=== PATIENT | female | born 1990 | race Caucasian/White ===

== ENCOUNTER 2019-02-11 18:37 | Emergency (ER) | payer MEDICAID ==
[2019-02-11] MEDS ORDERED: MAG HYDROX/AL HYDROX/SIMETH SUSP 30 ML UDCUP PO ONE (20:39)
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
[2019-02-11 21:06] LABS: ABSOLUTE BASOPHILS # (AUTO) 0.1 10^3/uL (0.0-0.2); ABSOLUTE EOSINOPHILS # (AUTO) 0.4 10^3/uL (0.0-0.6); ABSOLUTE LYMPHOCYTES (AUTO) 2.4 10^3/uL (0.5-4.7); ABSOLUTE MONOCYTES (AUTO) 0.5 10^3/uL (0.1-1.4); ABSOLUTE NEUT (AUTO) 5.1 10^3/uL (1.7-8.2); EOSINOPHILS % (AUTO) 4.5 % (0-6); HEMATOCRIT 36.6 % (36.0-47.0); HEMOGLOBIN 12.4 g/dL (12.0-15.5); LYMPHOCYTES % (AUTO) 28.3 % (13-45); MEAN CORPUSCULAR HEMOGLOBIN 28.5 pg (27.0-33.4); MEAN CORPUSCULAR HGB CONC 33.9 g/dL (32.0-36.0); MEAN CORPUSCULAR VOLUME 84 fl (80-97); MONOCYTES % (AUTO) 5.5 % (3-13); PLATELET COUNT 345 10^3/uL (150-450); RED BLOOD COUNT 4.36 10^6/uL (3.72-5.28); RED CELL DISTRIBUTION WIDTH 14.2 % (11.5-14.0); SEGMENTED NEUTROPHILS % (AUTO) 60.7 % (42-78); TOTAL CELLS COUNTED % (AUTO) 100 %; WHITE BLOOD COUNT 8.5 10^3/uL (4.0-10.5)
[2019-02-11 21:30] LABS: ALANINE AMINOTRANSFERASE 30 U/L (9-52); ALBUMIN 3.9 g/dL (3.5-5.0); ALKALINE PHOSPHATASE 65 U/L (38-126); ANION GAP 9 (5-19); ASPARTATE AMINO TRANSFERASE 26 U/L (14-36); BILIRUBIN,DIRECT 0.3 mg/dL (0.0-0.4); BILIRUBIN,TOTAL 0.4 mg/dL (0.2-1.3); BLOOD UREA NITROGEN 12 mg/dL (7-20); CALCIUM 9.4 mg/dL (8.4-10.2); CARBON DIOXIDE 25 mmol/L (22-30); CHLORIDE 105 mmol/L (98-107); CREATINE KINASE 205 U/L (30-135); GLUCOSE 83 mg/dL (75-110); LIPASE 75.7 U/L (23-300); POTASSIUM 4.3 mmol/L (3.6-5.0); SODIUM 138.9 mmol/L (137-145)
[2019-02-11 21:40] LABS: CREATINE KINASE MB 2.56 ng/mL (<4.55)
[2019-02-11 21:50] LABS: TROPONIN I < 0.012 ng/mL
--- NOTE | 2019-02-11 21:52 | RADIOLOGY REPORT (SQ) ---
EXAM DESCRIPTION: XR CHEST 2 VIEWS COMPLETED DATE/TME: 02/11/2019 20:38 CLINICAL HISTORY: 29 years, Female, Chest pain and bilateral pedal edema EXAM DESCRIPTION: CLINICAL HISTORY: Chest pain and bilateral pedal edema COMPARISON: February 11, 2016 FINDINGS: Two views of the chest are submitted. There is mild bilateral peribronchial cuffing. No significant pleural effusions. Cardiac silhouette appears normal. There is increased atelectasis at the left lung base. No definite focal consolidation. No acute bony abnormality. There is no significant pulmonary vascular engorgement. IMPRESSION: Mild pulmonary edema.
--- NOTE | 2019-02-11 23:01 | EKG REPORT ---
SEVERITY:- NORMAL ECG - SINUS RHYTHM : Confirmed by: Luis Enrique Chang 11-Feb-2019 23:00:26
[2019-02-12] MEDS ORDERED: FUROSEMIDE 20 MG TABLET PO ONE (00:34)
--- NOTE | 2019-02-12 00:34 | ER Document Report ---
ED General - General Chief Complaint: Leg Swelling Stated Complaint: FOOT SWELLING Time Seen by Provider: 02/11/19 20:33 Primary Care Provider: SLIME TAVAREZ MD [ACTIVE STAFF] - Follow up in 3-5 days Mode of Arrival: Ambulatory Notes: Patient is a pleasant 29-year-old female presents with complaint of some swelling in her legs. She also feels a bit short of breath when she gets up and exerts herself. She has felt a little dizzy and lightheaded. She says that this is been ongoing for 3 days. She is mentions that she has been having heavy vaginal bleeding for approximately a month. She has a history of PCOS. Her primary care doctor started on spironolactone approximately ago but she says that she feels that her symptoms have been worsening since starting this medication. She denies any fevers. No vomiting. She takes no other medications. She is significantly overweight. She has not followed up with a game protector in regards to her symptoms of heavy vaginal bleeding and PCOS. TRAVEL OUTSIDE OF THE [place] IN LAST 30 DAYS: No - Related Data Allergies/Adverse Reactions: Penicillins Allergy (Verified 02/11/19 18:41) strawberry Allergy (Verified 02/11/19 18:41) all cillins Allergy (Uncoded 02/11/19 18:41) Past Medical History - General Information source: Patient - Social History Smoking Status: Never Smoker Frequency of alcohol use: None Drug Abuse: None Family History: Reviewed & Not Pertinent Review of Systems - Review of Systems Notes: My Normal Review Basic REVIEW OF SYSTEMS: CONSTITUTIONAL : Denies fever, chills, or sweats. Denies recent illness. CARDIOVASCULAR: Denies chest pain. RESPIRATORY: Denies cough, cold, or chest congestion. Some difficulty breathing with exertion GASTROINTESTINAL: Denies abdominal pain. Denies nausea, vomiting, or diarrhea. GENITOURINARY: Denies difficulty urinating, painful urination, burning, frequency, or blood in urine. FEMALE GENITOURINARY: Recurrent heavy vaginal bleeding MUSCULOSKELETAL: Denies neck or back pain or joint pain or swelling. SKIN: Denies rash or skin lesions. NEUROLOGICAL: Denies altered mental status or loss of consciousness. Denies headache. Denies weakness or paralysis or loss of use of either side. Denies problems with gait or speech. Denies sensory or motor loss. ALL OTHER SYSTEMS REVIEWED AND NEGATIVE. Physical Exam - Vital signs Vitals: Temp Pulse Resp BP Pulse Ox 98.1 F 82 16 141/70 H 99 02/11/19 19:20 02/11/19 19:20 02/11/19 19:20 02/11/19 19:20 02/11/19 19:20 - Notes Notes: General Appearance: Well nourished, alert, cooperative, no acute distress, no obvious discomfort. Well-appearing. Vitals: reviewed, See vital signs table. Eyes: PERRL, EOMI, Conjuctiva clear Mouth: No decreasd moisture Throat: No tonsillar inflammation, No airway obstruction, No lymphadenopathy Neck: Supple, no neck tenderness, No thyromegaly Lungs: No wheezing, No rales, No rhonci, No accessory muscle use, good air exchange bilaterally. Heart: Normal rate, Regular rythm, No murmur, no rub Abdomen: Normal BS, soft, No rigidity, mildly diffusely tender to palpation, No guarding, no rebound, no abdominal masses, no organomegaly Extremities: strength 5/5 in all extremities, good pulses in all extremities, no swelling or tenderness in the extremities, trace edema. Skin: warm, dry, appropriate color, no rash Neuro: speech clear, oriented x 3, normal affect, responds appropriately to questions. Course - Re-evaluation Re-evalutation: 02/12/19 01:35 Patient looks very well on exam. Lung tellez are clear. She has only trace edema in her lower extremities. Chest x-ray showed mild pulmonary edema. I suspect most of this is related to her being morbidly obese. I explained this to her informed her that weight loss would likely improve most the symptoms that she is experiencing including probably decreased amount of vaginal bleeding that she is having. Encouraged her follow-up closely with her game protector. I will refer her to gynecology. I encouraged her to take Lasix as I was prescribed for the next week to see if this improves her symptoms. I will have her stop taking the spironolactone as she says is been making her feel worse. I have her follow-up with your doctor this coming week. I strongly encouraged her return to ER if she has worsening difficulty breathing, chest pain, worsening swelling, or she feels she is worse in any way. Patient EKG and cardiac enzymes and work- up was otherwise negative and she looks well. I do not suspect PE as she is not tachypneic, not tachycardic, not hypoxic, and does not have pleuritic chest pain. She agrees with plan will be discharged home. Dictation of this chart was performed using voice recognition software; therefore, there may be some unintended grammatical errors. - Vital Signs Vital signs: Temp Pulse Resp BP Pulse Ox 98.1 F 82 16 140/75 H 99 02/11/19 19:20 02/11/19 19:20 02/11/19 19:20 02/12/19 01:10 02/11/19 19:20 - Laboratory Result Diagrams: 02/11/19 20:48 02/11/19 20:48 Laboratory results interpreted by me: 02/11/19 02/11/19 20:48 20:48 RDW 14.2 H Creatine Kinase 205 H Discharge - Discharge Clinical Impression: Abnormal vaginal bleeding, Fluid retention Condition: Good Disposition: HOME, SELF-CARE Additional Instructions: In regards to your vaginal bleeding I have refered you to the [facility]. I have put down the number for the [facility]. The number is under the name Dr. Tavarez in your discharge paperwork. Please call them to make a close follow-up appointment in regards to your recurrent vaginal bleeding and PCOS. Please stop taking the spironolactone. Please start taking the Lasix as prescribed. This will help get rid of excess fluid. Please follow-up with your doctor next week for reevaluation. Have them check your potassium level as sometimes the Lasix can lower the potassium and sometimes you will need to be p laced on supplemental potassium if this is occurring. Currently your potassium levels are well within normal range and therefore you do not need initial potassium therapy with initial short course of this medication. Most of your symptoms will improve with weight loss. Please try to lose weight. Start a daily mild exercise regimen such as walking and try not to eat foods with large amounts of carbohydrates or simple sugars. Return to the ER immediately if you develop worsening difficulty breathing, increased swelling, episodes of passing out, worsening chest pain, or if you feel that you are worsening in any way. Prescriptions: Furosemide [Lasix 20 mg Tablet] 20 mg PO QAM #30 tablet Referrals: SLIME TAVAREZ MD [ACTIVE STAFF] - Follow up in 3-5 days
--- NOTE | 2019-02-12 00:42 | RADIOLOGY REPORT (SQ) ---
EXAM DESCRIPTION: US EXTREMITY VEINS BILATERAL COMPLETED DATE/TME: 02/11/2019 20:38 CLINICAL HISTORY: 29 years, Female, Bilateral pedal edema COMPARISON: None. TECHNIQUE: Transverse longitudinal sonographic images of the bilateral lower extremity deep venous system LIMITATIONS: None. FINDINGS: No visible areas of thrombus. Normal compression and augmentation throughout. Doppler images are normal IMPRESSION: Negative exam copyright 2010 [employer]- All Rights Reserved
[2019-02-12 01:10] VITALS: BP 140/75
== END 2019-02-12 01:11 | disposition home or self-care (01) ==
LOC: ER 18:37
DX: R60.9 Edema, unspecified (principal); E28.2 Polycystic ovarian syndrome; N93.9 Abnormal uterine and vaginal bleeding, unspecified; E66.01 Morbid (severe) obesity due to excess calories; R10.817 Generalized abdominal tenderness; R42 Dizziness and giddiness; R06.02 Shortness of breath; Z79.899 Other long term (current) drug therapy; Z88.0 Allergy status to penicillin; Z91.018 Allergy to other foods
CPT/HCPCS: 93005; 99284; 36415; 82553; 82550; 83690; 84703; 85025; 80053; 84484; 93970; 71046; 93010; J3490 ×2

== ENCOUNTER → 2019-03-30 | Outpatient (CLI) | payer MEDICAID ==
--- NOTE | 2019-03-30 12:49 | RADIOLOGY REPORT (SQ) ---
EXAM DESCRIPTION: U/S NON-OB PELVIS TV W/O DOP COMPLETED DATE/TIME: 03/30/2019 12:16 pm REASON FOR STUDY: E28.2 POLYCYSTIC OVARIAN SYNDROME E28.2 POLYCYSTIC OVARIAN SYNDROME COMPARISON: None. TECHNIQUE: Dynamic and static grayscale images acquired of the pelvis via transvaginal approach and recorded on PACS. LIMITATIONS: None. FINDINGS: UTERUS: Contour normal. No mass. ENDOMETRIAL STRIPE: No focal or generalized thickening. No masses. CERVIX: No nabothian cysts. RIGHT OVARY AND DOPPLER: Normal size. No worrisome masses. Arterial flow is present. LEFT OVARY AND DOPPLER: Normal size. No worrisome masses. Arterial flow is present. FREE FLUID: None noted. OTHER: No other significant finding. MEASUREMENTS: UTERUS: 8.7 x 6.2 x 4.8 cm. ENDOMETRIAL STRIPE: 13.6 mm. RIGHT OVARY: 2.5 x 3.2 x 1.7 cm. LEFT OVARY: 2.5 x 2.7 x 2.0 cm. IMPRESSION: NORMAL TRANSVAGINAL PELVIC ULTRASOUND. TECHNICAL DOCUMENTATION: JOB ID: [id number]- All Rights Reserved Rev-01/02 Reading location - IP/workstation name: [email or web address]
== END ==
LOC: RAD 11:01
PROVIDERS: ATTEND Obstetrics & Gynecology Gynecology
DX: E28.2 Polycystic ovarian syndrome (principal)
CPT/HCPCS: 76830